=== PATIENT | male | born 1980 | race Caucasian/White ===

== ENCOUNTER 2016-07-20 10:51 | Emergency (ER) | payer OTHER ==
[~2016-07-20] VITALS: Ht 172.7 cm; Wt 97.7 kg
[~2016-07-20 10:51] MED LIST: ATIVAN 0.50.5 MG/TAB PO; AZO-STANDARD95 MG PO; CEFTIN500 MG PO; FIORICET 325 MG1 TA1 PO; FLEXERIL 1010 MG/TAB PO; FLOMAX 0.40.4 MG/CAP PO; IMITREX 25MG TA25 MG PO; LEVAQUIN 5500 MG/TA1 PO; MOBIC 7.5MG7.5 MG PO; MOBIC15 MG PO; MULTI VITAMINS1 TAB PO; NEURONTIN100 MG/CAP PO; NEURONTIN300 MG/CAP PO; NORCO 325 MG-51 TAB PO; PERCOCET 325 MG1 TA2 PO; PERCOCET 325 MG1 TA3 PO; PYRIDIUM 100MG100 MG PO; ROXICODONE 55 MG/TAB PO; SENOKOT S 50 MG1 TAB PO; TOPAMAX 25MG25 M1 PO; ULTRAM 50MG TAB50 MG PO; ZOCOR 20MG20 MG PO; ZOCOR5 MG PO; ZOFRAN ODT8 MG PO
[2016-07-20 10:58] VITALS: TEMP 98.2
[2016-07-20 11:44] LABS: BASO % 0.1 % (0.0-2.0); GRAN # 17.2 (1.4-6.5); GRAN % 92.8 % (42.2-75.2); HEMATOCRIT 50.3 % (42.0-52.0); LYMPH # 0.6 (1.2-3.4); LYMPH % 3.4 % (20.0-51.0); MEAN CELL VOLUME 86 fl (80.0-100.0); MEAN CORPUSCULAR HEMOGLOBIN 29 pg (27.0-31.0); MEAN CORPUSCULAR HGB CONC 34 g/dl (33.0-37.0); MEAN PLATELET VOLUME 10.6 fl (7.4-10.4); MONO # 0.6 (0.1-0.6); MONO % 3.4 % (1.7-9.3); PLATELET COUNT 240 K/mm3 (130-400); RED BLOOD COUNT 5.85 M/mm3 (4.20-5.60); REDCELL DISTRIBUTION WIDTH-CV 12.1 % (11.5-14.5); WHITE BLOOD COUNT 18.5 K/mm3 (4.8-10.8)
[2016-07-20 11:51] LABS: ADJUSTED CALCIUM 8.5 mg/dL (8.4-10.2); ALBUMIN 5.2 gm/dL (3.5-5.0); BILIRUBIN,TOTAL 0.9 mg/dL (0.0-1.0); CALCIUM 9.5 mg/dL (8.4-10.2); CREATININE, serum 0.89 mg/dL (0.66-1.25); POTASSIUM 4.1 mmol/L (3.4-5.0); TOTAL PROTEIN 8.4 gm/dL (6.4-8.2)
[2016-07-20 12:01] LABS: ADD PATHOLOGY DIFF REVIEW NO
[2016-07-20 12:19] LABS: BAND 24 % (0-10); NEUTROPHILS 71 % (42.0-75.2); TOTAL CELLS COUNTED 100
[2016-07-20 12:20] LABS: PLATELET ESTIMATE NORMAL (NORMAL)
[2016-07-20] MEDS ORDERED: ZOFRAN ODT4 MG PO (12:30)
[2016-07-20 14:41] VITALS: BP 142/81; PULSE 109
== END 2016-07-20 14:40 | disposition home or self-care (01) ==
LOC: COL.ER 10:51
PROVIDERS: Emergency Medicine
DX: R11.2 Nausea with vomiting, unspecified (principal); R19.7 Diarrhea, unspecified; R00.0 Tachycardia, unspecified
CPT/HCPCS: J2405; J2550; J7030

== ENCOUNTER → 2016-08-13 | Outpatient (CLI) | payer OTHER ==
[~2016-08-13] MED LIST changes: +ZOFRAN ODT4 MG PO
== END ==
LOC: COL.RAD 06:03
DX: N13.5 Crossing vessel and stricture of ureter without hydronephrosis (principal)
CPT/HCPCS: A9562

== ENCOUNTER → 2017-01-02 | Outpatient (CLI) | payer OTHER | LOC: COL.RAD 08:33 | DX: R31.0 Gross hematuria (principal); N28.89 Other specified disorders of kidney and ureter ==

== ENCOUNTER → 2017-01-07 | Outpatient (CLI) | payer OTHER | LOC: COL.RAD 14:50 | DX: N13.30 Unspecified hydronephrosis (principal); N20.0 Calculus of kidney ==

== ENCOUNTER 2017-02-21 16:09 | Inpatient (IN) | payer OTHER ==
[~2017-02-21] VITALS: Ht 172.7 cm; Wt 94.3 kg
[2017-04-11] VITALS (13 sets, daily range): BP systolic 134–158; BP diastolic 57–89; PULSE 67–116; TEMP 97.3–97.7
[2017-04-11] MEDS ORDERED: NORCO 325 MG-101 TAB PO (06:43)
[2017-04-11] MEDS ORDERED: UROCIT-K 5540 MG/TAB PO (06:45)
[2017-04-11] MEDS ORDERED: HCTZ 25MG TAB25 MG PO (06:46)
[2017-04-11 07:53] LABS: BASO % 0.5 % (0.0-2.0); EOS # 0.1 (0.0-0.7); EOS % 0.6 % (0-4.0); GRAN # 4.8 (1.4-6.5); GRAN % 58.7 % (42.2-75.2); HEMATOCRIT 45.7 % (42.0-52.0); HEMOGLOBIN 15.4 g/dl (13.5-18.0); LYMPH # 2.4 (1.2-3.4); LYMPH % 29.7 % (20.0-51.0); MEAN CELL VOLUME 86 fl (80.0-100.0); MEAN CORPUSCULAR HEMOGLOBIN 29 pg (27.0-31.0); MEAN CORPUSCULAR HGB CONC 34 g/dl (33.0-37.0); MEAN PLATELET VOLUME 10.3 fl (7.4-10.4); MONO # 0.8 (0.1-0.6); MONO % 10.3 % (1.7-9.3); PLATELET COUNT 213 K/mm3 (130-400); RED BLOOD COUNT 5.31 M/mm3 (4.20-5.60); REDCELL DISTRIBUTION WIDTH-CV 12.3 % (11.5-14.5)
[2017-04-11 08:06] LABS: INR 1.1 (0.8-3.0); PROTHROMBIN TIME 12.2 SECONDS (9.7-12.8)
[2017-04-12] VITALS (7 sets, daily range): BP systolic 108–127; BP diastolic 54–66; PULSE 79–108; TEMP 97.3–98.8
[2017-04-12 06:57] LABS: BASO % 0.1 % (0.0-2.0); GRAN # 11.3 (1.4-6.5); GRAN % 86.3 % (42.2-75.2); HEMATOCRIT 40.9 % (42.0-52.0); HEMOGLOBIN 13.5 g/dl (13.5-18.0); LYMPH # 1.1 (1.2-3.4); LYMPH % 8.6 % (20.0-51.0); MEAN CELL VOLUME 87 fl (80.0-100.0); MEAN CORPUSCULAR HEMOGLOBIN 29 pg (27.0-31.0); MEAN CORPUSCULAR HGB CONC 33 g/dl (33.0-37.0); MEAN PLATELET VOLUME 10.5 fl (7.4-10.4); MONO # 0.6 (0.1-0.6); MONO % 4.7 % (1.7-9.3); PLATELET COUNT 211 K/mm3 (130-400); RED BLOOD COUNT 4.69 M/mm3 (4.20-5.60); REDCELL DISTRIBUTION WIDTH-CV 12.4 % (11.5-14.5)
[2017-04-13] VITALS (7 sets, daily range): BP systolic 116–138; BP diastolic 55–79; PULSE 79–100; TEMP 98.2–99.8
[2017-04-14] VITALS (9 sets, daily range): BP systolic 124–136; BP diastolic 59–78; PULSE 75–108; TEMP 98–99.4
[2017-04-15] VITALS (8 sets, daily range): BP systolic 123–140; BP diastolic 73–80; PULSE 95–114; TEMP 97.8–98.6
[2017-04-16] VITALS (13 sets, daily range): BP systolic 103–126; BP diastolic 57–86; PULSE 79–109; TEMP 97.4–98.4
[2017-04-17 02:06] VITALS: BP 131/65; PULSE 98; TEMP 97
[2017-04-17 04:50] VITALS: BP 120/55; PULSE 88; TEMP 97
== END 2017-04-17 12:55 | disposition home or self-care (01) | DRG 660 ==
LOC: INPTSU 04-11 06:07 → SURG 04-11 06:07 → COL.RAD 04-11 08:00 → SURG 04-11 08:00 → EDSTATUS 04-11 08:00 → SURG 04-11 15:35
PROVIDERS: Radiology Diagnostic Radiology; Urology
PROC: 0TC38ZZ Extirpation of Matter from Right Kidney Pelvis, Via Natural or Artificial Opening Endoscopic (ICD-10-PCS; 2017-04-11)
PROC: 0T9030Z Drainage of Right Kidney with Drainage Device, Percutaneous Approach (ICD-10-PCS; 2017-04-11)
PROC: 0T738DZ Dilation of Right Kidney Pelvis with Intraluminal Device, Via Natural or Artificial Opening Endoscopic (ICD-10-PCS; principal; 2017-04-11 13:00)
PROC: 0T768DZ Dilation of Right Ureter with Intraluminal Device, Via Natural or Artificial Opening Endoscopic (ICD-10-PCS; 2017-04-16)
PROC: BT1DZZZ Fluoroscopy of Right Kidney, Ureter and Bladder (ICD-10-PCS; 2017-04-16)
DX: N13.2 Hydronephrosis with renal and ureteral calculous obstruction (principal); G47.33 Obstructive sleep apnea (adult) (pediatric)
CPT/HCPCS: A4314; A9284; C1726; C1729; C1758; C1769; C1894; C2617; J0330; J0690; J0696; J1100; J1170; J1885; J2250; J2270; J2405; J2704; J2710; J3010; J7030; J7120; Q9967

== ENCOUNTER 2017-05-02 11:52 | Day surgery (SDC) | payer OTHER ==
[~2017-05-02] VITALS: Ht 172.7 cm; Wt 93.2 kg
[~2017-05-02 11:52] MED LIST changes: +HCTZ 25MG TAB25 MG PO; +NORCO 325 MG-101 TAB PO; +UROCIT-K 5540 MG/TAB PO
[2017-05-02 12:08] VITALS: BP 120/75; PULSE 97; TEMP 98.3
[2017-05-02 15:05] VITALS: BP 113/71; PULSE 87; TEMP 98.4
[2017-05-02 15:20] VITALS: BP 113/66; PULSE 87
[2017-05-02 15:35] VITALS: BP 111/54; PULSE 87
[2017-05-02 15:50] VITALS: BP 118/70; PULSE 80
== END 2017-05-02 16:30 | disposition home or self-care (01) ==
LOC: SDCO 11:52
DX: Z46.6 Encounter for fitting and adjustment of urinary device (principal); K21.9 Gastro-esophageal reflux disease without esophagitis; E78.00 Pure hypercholesterolemia, unspecified; G47.33 Obstructive sleep apnea (adult) (pediatric); G43.909 Migraine, unspecified, not intractable, without status migrainosus; Z90.49 Acquired absence of other specified parts of digestive tract; Z87.442 Personal history of urinary calculi; Z83.3 Family history of diabetes mellitus; Z82.49 Family history of ischemic heart disease and other diseases of the circulatory system
CPT/HCPCS: J0690; J1100; J1885; J2250; J2405; J2704; J3010; J7120

== ENCOUNTER → 2017-06-18 | Outpatient (CLI) | payer OTHER | LOC: COL.RAD 10:31 | DX: E21.2 Other hyperparathyroidism (principal) | CPT/HCPCS: A9500 ==